=== PATIENT | female | born 1955 | race Caucasian/White ===

== ENCOUNTER 2022-07-08 06:45 | Observation (INO) ==
[~2022-07-08 06:45] MED LIST: Buffered Lidocaine 1% SYRIN 1 ml INTRADERM ONE; Lactated Ringers 1000 ml BAG 1,000 ML IV SCH; ROPIVACAINE 5 MG/ML 30 ML BTL (0.5%) ONE
[2022-07-08] MEDS ORDERED: Propofol 10 mg/ml 100 ML BTL 1,000 MG/100 ML BTL ONE (07:06)
[2022-07-08] MEDS ORDERED: Phenylephrine IV 10 MG/ML 1 ml VIAL ONE (07:08)
[2022-07-08] MEDS ORDERED: Midazolam 2 mg/2 ml VIAL 1 mg/ml 2 ml VIAL (2 mg) ONE ×2 (07:15→07:56)
[2022-07-08] MEDS ORDERED: Dexamethasone IV 4 MG/ML VIAL 1 ml VIAL ONE (07:15)
[2022-07-08] MEDS ORDERED: fentaNYL 100 mcg/2 ml 50 MCG/ML VIAL ONE ×2 (07:15→07:56)
[2022-07-08] MEDS ORDERED: Ondansetron 4 mg VIAL 2 MG/ML 2 ml VIAL ONE (07:15)
[2022-07-08] MEDS ORDERED: ceFAZolin 2 GM in NS PREMIX 2 GM/100 ML BAG IVPB ONE (07:16)
[2022-07-08] MEDS ORDERED: ROPIVACAINE 5 MG/ML 30 ML BTL (0.5%) ONE (07:53)
[2022-07-08] MEDS ORDERED: fentaNYL 100 mcg/2 ml 50 MCG/ML VIAL IV PRN (08:57)
[2022-07-08] MEDS ORDERED: Ondansetron 4 mg VIAL 2 MG/ML 2 ml VIAL IV PRN ×2 (08:57→09:34)
[2022-07-08] MEDS ORDERED: Scopolamine 1 mg/72hr PATCH TRANSDERM PRN (08:57)
[2022-07-08] MEDS ORDERED: Prochlorperazine 5 mg/ml 2 ml VIAL (10 mg) IV PRN (08:57)
[2022-07-08] MEDS ORDERED: Naloxone 0.4 mg VIAL 0.4 mg/ml 1 ml VIAL IV PRN (08:57)
[2022-07-08] MEDS ORDERED: Acetaminophen IV 1 GM/100ML 1,000 MG/100 ML BAG IV ONE (09:12)
[2022-07-08] MEDS ORDERED: Magnesium Hydroxide LIQ 30 ML UDC PO PRN (09:34)
[2022-07-08] MEDS ORDERED: Ondansetron ODT 4 mg TAB 4 MG TAB PO PRN (09:34)
[2022-07-08] MEDS ORDERED: Lactulose 30 ml UDC PO PRN (09:34)
[2022-07-08] MEDS ORDERED: ceFAZolin 1 GM ADVAN 1 GM in NS 0.9% 50 ML 50 ML IVPB SCH (10:00)
[2022-07-08] MEDS: Lactated Ringers 1000 ml BAG 1,000 ML IV SCH (12:30)
[2022-07-08] MEDS: ceFAZolin 1 GM ADVAN 1 GM in NS 0.9% 50 ML 50 ML IVPB SCH (17:08)
[2022-07-08] MEDS: Magnesium Hydroxide LIQ 30 ML UDC PO SCH (20:25)
[2022-07-09] MEDS: ceFAZolin 1 GM ADVAN 1 GM in NS 0.9% 50 ML 50 ML IVPB SCH ×2 (00:36→08:25)
[2022-07-09] MEDS: Lactated Ringers 1000 ml BAG 1,000 ML IV SCH (00:37)
[2022-07-09 07:07] VITALS: BP 119/68
[2022-07-09 07:20] LABS: Hematocrit 30 % (35-47); Hemoglobin 9.8 g/dL (12.0-16.0); Mean Platelet Volume 8.1 fL (7.4-10.4); Platelet Count 236 10^3/uL (150-450)
[2022-07-09 07:36] LABS: Calcium 8.9 mg/dL (8.6-10.3); Creatinine, Serum 0.67 mg/dL (0.51-0.95); Potassium 4.1 mmol/L (3.5-5.0); eGFR CKD-EPI 96.3 (>60)
[2022-07-09] MEDS: Magnesium Hydroxide LIQ 30 ML UDC PO SCH (08:33)
[2022-07-09] MEDS ORDERED: Vitamin THERAPEUTIC TAB PO SCH (09:00)
== END 2022-07-09 10:50 | disposition home or self-care (01) ==
LOC: SSU → INTOOBSV 06:45 → AA 06:45
PROVIDERS: ADMIT Orthopaedic Surgery Adult Reconstructive Orthopaedic Surgery; ATTEND Orthopaedic Surgery Adult Reconstructive Orthopaedic Surgery

== ENCOUNTER 2023-07-14 09:00 | Observation (INO) ==
[~2023-07-14 09:00] MED LIST changes: +Midazolam 5 mg/5 ml VIAL 1 mg/ml 5 ml VIAL (5 mg) ONE; +Propofol 10 MG/ML 20 ML BTL ONE; -ROPIVACAINE 5 MG/ML 30 ML BTL (0.5%) ONE
[2023-07-14] MEDS ORDERED: Tranexamic Acid 1 GM/100ML BAG 2,000 MG/200 ML BAG IV ONE (10:12)
[2023-07-14] MEDS ORDERED: ceFAZolin 2 GM in NS PREMIX 2 GM/100 ML BAG IVPB ONE (10:13)
[2023-07-14 10:37] LABS: Rapid COVID-19 Molecular Undetected (Undetected)
[2023-07-14] MEDS ORDERED: Lidocaine 2% PF 5 ML VIAL ONE (11:03)
[2023-07-14] MEDS ORDERED: Propofol 10 MG/ML 20 ML BTL ONE ×2 (11:03→14:43)
[2023-07-14] MEDS ORDERED: ROPIVACAINE 5 MG/ML 30 ML BTL (0.5%) ONE ×2 (11:29→12:14)
[2023-07-14] MEDS ORDERED: Ondansetron 4 mg VIAL 2 MG/ML 2 ml VIAL IV PRN ×2 (12:09→15:21)
[2023-07-14] MEDS ORDERED: Acetaminophen IV 1 GM/100ML 1,000 MG/100 ML BAG IV PRN (12:09)
[2023-07-14] MEDS ORDERED: HYDROmorphone 1 MG/1 ML SYRINGE IV PRN (12:09)
[2023-07-14] MEDS ORDERED: fentaNYL 100 mcg/2 ml 50 MCG/ML VIAL IV PRN (12:09)
[2023-07-14] MEDS ORDERED: Naloxone 0.4 mg VIAL 0.4 mg/ml 1 ml VIAL IV PRN (12:09)
[2023-07-14] MEDS ORDERED: KETAMINE HCL 10 MG/ML 20 ml VIAL (200 MG) ONE (13:04)
[2023-07-14] MEDS ORDERED: Glycopyrrolate IV 0.2 MG/ML 1 ML VIAL ONE (13:11)
[2023-07-14] MEDS ORDERED: fentaNYL 100 mcg/2 ml 50 MCG/ML VIAL ONE (13:19)
[2023-07-14] MEDS ORDERED: Ondansetron 4 mg VIAL 2 MG/ML 2 ml VIAL ONE (13:26)
[2023-07-14] MEDS ORDERED: Dexamethasone IV 4 MG/ML VIAL 1 ml VIAL ONE (13:26)
[2023-07-14] MEDS ORDERED: Phenylephrine 40 mcg/mL 10mL (400mcg) SYRINGE ONE ×2 (14:01→14:16)
[2023-07-14] MEDS ORDERED: Acetaminophen IV 1 GM/100ML 1,000 MG/100 ML BAG IV ONE (14:01)
[2023-07-14] MEDS ORDERED: Bupivacaine-MPF SPINAL 7.5 MG/ML - 2ML AMP ONE (14:18)
[2023-07-14] MEDS ORDERED: Ondansetron ODT 4 mg TAB 4 MG TAB PO PRN (15:21)
[2023-07-14] MEDS ORDERED: Morphine 2 MG/ML SYRINGE IV PRN (15:21)
[2023-07-14] MEDS ORDERED: Lactulose 30 ml UDC PO PRN (15:21)
[2023-07-14] MEDS ORDERED: Magnesium Hydroxide LIQ 30 ML UDC PO PRN (15:21)
[2023-07-14] MEDS: Lactated Ringers 1000 ml BAG 1,000 ML IV SCH (18:33)
[2023-07-14] MEDS: ceFAZolin 1 GM ADVAN 1 GM in NS 0.9% 50 ML 50 ML IVPB SCH (21:47)
[2023-07-14] MEDS: Magnesium Hydroxide LIQ 30 ML UDC PO SCH (21:49)
[2023-07-15] MEDS: ceFAZolin 1 GM ADVAN 1 GM in NS 0.9% 50 ML 50 ML IVPB SCH ×2 (04:22→12:14)
[2023-07-15] MEDS: Lactated Ringers 1000 ml BAG 1,000 ML IV SCH (05:22)
[2023-07-15 06:17] LABS: Platelet Count 257 10^3/uL (150-450)
[2023-07-15 06:32] LABS: Calcium 8.9 mg/dL (8.6-10.3); Creatinine, Serum 0.74 mg/dL (0.51-0.95); Potassium 4.2 mmol/L (3.5-5.0); eGFR CKD-EPI 88.6 (>60)
[2023-07-15 06:54] LABS: Hematocrit 29.7 % (35-45); Hemoglobin 10.2 g/dL (11.5-14.3); Mean Platelet Volume 7.9 fL (7.5-11.2)
[2023-07-15 07:02] LABS: Urine Appearance Clear; Urine Bilirubin Negative (Negative); Urine Blood Negative (Negative); Urine Color Yellow; Urine Glucose Negative (Negative); Urine Ketones Trace (Negative); Urine Nitrite Negative (Negative); Urine Protein Negative (Negative); Urine Specific Gravity 1.014 (1.002-1.030); Urine Urobilinogen Negative (Negative)
[2023-07-15] MEDS: Magnesium Hydroxide LIQ 30 ML UDC PO SCH (07:56)
[2023-07-15] MEDS ORDERED: Vitamin THERAPEUTIC TAB PO SCH (09:00)
[2023-07-15 09:39] VITALS: BP 109/69
== END 2023-07-15 12:50 | disposition home or self-care (01) ==
LOC: INTOOBSV 09:53 → AA 09:53 → SSU 17:48
PROVIDERS: ADMIT Orthopaedic Surgery Adult Reconstructive Orthopaedic Surgery; ATTEND Orthopaedic Surgery Adult Reconstructive Orthopaedic Surgery